=== PATIENT | male | born 1980 | race Caucasian/White ===

== ENCOUNTER 2022-08-30 13:44 | Emergency (ER) | payer MEDICAID, SELFPAY ==
[2022-08-30 13:45] VITALS: BP 126/65; PULSE 98; RESP 16; TEMP 37.1; O2SAT 96
[2022-08-30 13:53] VITALS: BMI 24.0
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
[2022-08-30] MEDS: 0.9% Normal Saline 1,000 ML 999 ML IV (14:17)
[2022-08-30] MEDS: Morphine 4 MG/ML Syringe IV ×2 (14:17→14:59)
[2022-08-30 14:30] LABS: Absolute Lymphocyte Count 2.91 X10^3/uL (0.83-4.51); Absolute Neutrophil Count 9.2 X10^3/uL (2.0-7.7); Basophil# 0.06 X10^3/uL; Basophil% 0.4 % (0-1); Eosinophil# 0.21 X10^3/uL; Eosinophils% 1.5 % (0-5); Hematocrit 45.2 % (40-54); Hemoglobin 15.3 g/dL (13.0-16.5); Lymphocyte # 2.91 X10^3/ul (0.83-4.51); Lymphocyte % 21.2 % (19-41); Mean Corp Hgb Conc 33.8 g/dL (32-36); Mean Corpuscular Hgb 29.3 pg (27.0-32.0); Mean Corpuscular Volume 86.6 fL (80-94); Mean Platelet Vol. 10.7 fl (6.2-12.0); Monocyte% 8.7 % (0-10); NRBC Flagged by Analyzer 0 % (0-5); Neutrophil # 9.19 X10^3/uL (2.7-7.7); Platelet Count 227 K/mm3 (150-450); RBC Distribution Width CV 13.3 % (11.6-14.6); Red Blood Count 5.22 M/mm3 (4.6-6.2); White Blood Count 13.7 K/mm3 (4.4-11.0)
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
[2022-08-30 14:43] LABS: Anion Gap 8 (5-15); BUN 15 mg/dL (7-18); BUN/Creat Ratio 17.1 RATIO (10-20); Calcium,Total 9.3 mg/dL (8.5-10.1); Chloride 105 mmol/L (98-107); Creatinine, Serum 0.88 mg/dL (0.70-1.30); EST Glomerular Filtration Rate 101 mL/min (>60); Est Glom Filt Rate - Afr Amer 122 mL/min (>60); Estimated Creatinine Clearance 116.47 ml/min; Glucose 97 mg/dL (74-106); Potassium 3.5 mmol/L (3.5-5.1); Sodium Level 137 mmol/L (136-145)
[2022-08-30 15:06] VITALS: PULSE 101; RESP 14; O2SAT 98
[2022-08-30] MEDS: HYDROmorphone 1 MG/ML Syringe IV (15:42)
[2022-08-30 15:50] VITALS: PULSE 92; RESP 16
== END 2022-08-30 16:20 | disposition home or self-care (01) ==
PROVIDERS: Emergency Provider Emergency Medicine; Visit Provider Emergency Medicine
DX: S20.20XA Contusion of thorax, unspecified, initial encounter (principal); S09.90XA Unspecified injury of head, initial encounter; F17.210 Nicotine dependence, cigarettes, uncomplicated; X58.XXXA Exposure to other specified factors, initial encounter
CPT/HCPCS: 70450; 71260; 72125; 73000; 74177; 80048; 85025; 93005; 96361; 96374; 96375; 96376; 99283; Q9967; A4216

== ENCOUNTER 2024-11-28 10:14 | Emergency (ER) | payer MEDICAID, SELFPAY ==
[2024-11-28 10:15] VITALS: BP 146/85; PULSE 96; RESP 18; TEMP 36.8; O2SAT 96; BMI 31.5
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
--- NOTE | 2024-11-28 10:26 | EKG12_ITS ---
Test Reason : SOB Blood Pressure : */* mmHG Vent. Rate : 86 BPM Atrial Rate : 86 BPM P-R Int : 168 ms QRS Dur : 96 ms QT Int : 342 ms P-R-T Axes : 59 66 50 degrees QTcB Int : 409 ms Normal sinus rhythm Normal ECG Confirmed by GALO RAIN, SCOTT ([id number]), general expeditor ERI ANNA ([id number]) on 12/02/2024 8:58:54 AM Referred By: Confirmed By: SCOTT ROSENTHAL MD
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
[2024-11-28] MEDS: Orphenadrine 60 MG/2 ML Ampul 30 MG IV (10:31)
[2024-11-28] MEDS: 0.9% Normal Saline (1000mL) 1,000 ML 999 ML IV (10:31)
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
[2024-11-28 10:47] LABS: Hematocrit 46.8 % (40-54); Hemoglobin 16.5 g/dL (13.0-16.5); Immature Granulocytes Count 0.090 X10^3/uL (0.0-0.0); Mean Corp Hgb Conc 35.3 g/dL (32-36); Mean Corpuscular Volume 87.3 fL (80-94); Mean Platelet Vol. 9.8 fl (6.2-12.0); NRBC Flagged by Analyzer 0 % (0-5); Platelet Count 175 K/mm3 (150-450); RBC Distribution Width CV 13.1 % (11.6-14.6); RBC Distribution Width SD 41.8 fl (35.1-43.9); Red Blood Count 5.36 M/mm3 (4.6-6.2); White Blood Count 12.9 K/mm3 (4.4-11.0)
[2024-11-28 10:56] LABS: Prothrombin Time (Protime)PT. 13.9 SECONDS (11.7-14.9)
[2024-11-28 10:57] LABS: Partial Thromboplast Time 26.7 Seconds (24.1-36.2)
[2024-11-28 11:17] VITALS: O2SAT 98
[2024-11-28 11:25] LABS: AST(SGOT) 49 U/L (<=37); Alanine Aminotransfer ALT/SGPT 32 U/L (<=46); Albumin, Serum 4.3 g/dL (3.5-5.0); Alkaline Phosphatase 104 U/L (40-129); Anion Gap 15 (5-15); BUN 11 mg/dL (4-19); BUN/Creat Ratio 13.7 RATIO (10-20); Bilirubin, Direct 0.32 mg/dL (0.00-0.30); Calcium,Total 9.4 mg/dL (7.6-11.0); Carbon Dioxide 20.1 mmol/L (21.0-32.0); Chloride 102 mmol/L (98-108); Estimated Creatinine Clearance 140.39 ml/min (50-250); Globulin 3.9 g/dL (2.2-4.2); Glucose 110 mg/dL (70-99); Potassium 4.1 mmol/L (3.3-5.1)
[2024-11-28 11:41] LABS: Mucous, Urine 0 SEEN /hpf (<or=2+); Red Blood Cells-Urine 0 SEEN /hpf (0-5); Squamous Epithelial Cells - UA 0 SEEN /hpf (0-5)
[2024-11-28 11:49] LABS: Glucose, Dipstick Normal (Normal); Leukocyte Esterase-Dipstick 25 /ul (Negative); Nitrite-Dipstick Negative (Negative); Occult Blood-Urine 10 /ul (Negative); Protein-Dipstick 30 mg/dl (Negative); Specific Gravity, Urine 1.010 (1.002-1.030); Urine Bilirubin Dipstick Negative (Negative)
[2024-11-28 11:57] LABS: Ketone-Dipstick 150 mg/dl (Negative)
[2024-11-28 12:01] LABS: Color, Urine Yellow (Yellow)
[2024-11-28 13:36] VITALS: BP 146/83; PULSE 96; RESP 18; TEMP 36.8; O2SAT 97
== END 2024-11-28 13:45 | disposition other institution (70) ==
PROVIDERS: Emergency Provider Emergency Medicine; Visit Provider Emergency Medicine
DX: S32.019A Unspecified fracture of first lumbar vertebra, initial encounter for closed fracture (principal); S32.029A Unspecified fracture of second lumbar vertebra, initial encounter for closed fracture; S32.039A Unspecified fracture of third lumbar vertebra, initial encounter for closed fracture; S22.089A Unspecified fracture of T11-T12 vertebra, initial encounter for closed fracture; S22.32XA Fracture of one rib, left side, initial encounter for closed fracture; V89.2XXA Person injured in unspecified motor-vehicle accident, traffic, initial encounter; M47.816 Spondylosis without myelopathy or radiculopathy, lumbar region; F17.210 Nicotine dependence, cigarettes, uncomplicated; Z87.828 Personal history of other (healed) physical injury and trauma; Z87.898 Personal history of other specified conditions
CPT/HCPCS: 70450; 71260; 72125; 74177; 80048; 80076; 81001; 85025; 85610; 85730; 93005; 96361; 96374; 96375; 96376; 99284; Q9967; A4216; J2405

== ENCOUNTER 2024-11-30 11:20 | Emergency (ER) | payer MEDICAID, SELFPAY ==
[2024-11-30] VITALS (7 sets, daily range): BP systolic 102–141; BP diastolic 64–89; PULSE 55–78; RESP 16–18; TEMP 36.7; O2SAT 95–98; BMI 31.4
--- OUTSIDE RECORDS SUMMARY | 2024-11-30 11:54 | XMS RPT_ITS | CCD ---
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 #### [facility],[address] [place] [address] 70793 ALT [Catalytic activity/Vol] 34 U/L Normal 16 - 63 [facility] Comment on above: Performed By: #### 2 05636 #### [facility],[address] [place] [address] 49170 Anion gap [Moles/Vol] 13 mmol/L Normal 10 - 20 [facility] Comment on above: Performed By: #### 2 81702 #### [facility],[address] [place] [address] 09216 AST [Catalytic activity/Vol] 16 U/L Normal 15 - 37 [facility] Comment on above: Performed By: #### 2 48207 #### [facility],[address] [place] [address] 05842 B/C RATIO 12 ratio Normal 0 - 30 [facility] Comment on above: Performed By: #### 2 92759 #### [facility],[address] [place] [address] 14763 Bilirubin [Mass/Vol] 0.5 mg/dL Normal 0.2 - 1.0 [facility] Comment on above: Performed By: #### 2 30094 #### [facility],[address] [place] [address] 19790 Calcium [Mass/Vol] 8.3 mg/dL Low 8.5 - 10.1 [facility] Comment on above: Performed By: #### 2 15695 #### [facility],[address] [place] [address] 54643 Chloride [Moles/Vol] 103 mmol/L Normal 98 - 107 [facility] Comment on above: Performed By: #### 2 30695 #### [facility],[address] [place] [address] 27161 CMP with eGFR Normal [facility] Comment on above: Result Comment: COMP REHENSIVE METABOLIC PANEL Performed By: #### 2 15692 #### [facility],[address] [place] [address] 10672 CO2 [Moles/Vol] 23.8 mmol/L Normal 21.0 - 32.0 [facility] Comment on above: Performed By: #### 2 01484 #### [facility],[address] [place] [address] 47141 Creatinine [Mass/Vol] 0.74 mg/dL Normal 0.70 - 1.30 [facility] Comment on above: Performed By: #### 2 40440 #### [facility],[address] [place] [address] 21989 GFR/1.73 sq M.predicted among non-blacks MDRD (S/P/Bld) [Vol rate/Area] mL/min/{1.73_m2} Normal 60 - 999 [facility] Comment on above: Performed By: #### 2 97190 #### [facility],[address] [place] [address] 37068 Result Comment: ACCO RDING TO THE NATIONAL KIDNEY DISEASE EDUCATION PROGRAM(NKDE), A NORMAL eGFR IS A VALUE GREATER THAN OR EQUAL TO 60 ML/MIN/1.73 SQ METERS. CHRONIC KIDNEY DISEASE: <60mL/MIN/1.73 SQ METERS KIDNEY FAILURE: <15mL/MIN/1.73 SQ METERS THIS TEST SHOULD ONLY BE USED FOR PATIENTS 18 YEARS OF AGE AND OLDER. Globulin (S) [Mass/Vol] 4.0 g/dL High 1.5 - 3.8 [facility] Comment on above: Performed By: #### 2 16544 #### [address] [address] Glucose [Mass/Vol] 118 mg/dL High 74 - 106 [facility] Comment on above: Performed By: #### 2 73086 #### [address] [address] Potassium [Moles/Vol] 3.6 mmol/L Normal 3.5 - 5.1 [facility] Comment on above: Performed By: #### 2 34944 #### [facility],[address] [place] [address] 70340 Protein [Mass/Vol] 7.2 g/dL Normal 6.4 - 8.2 [facility] Comment on above: Performed By: #### 2 32369 #### [facility],[address] [place] [address] 85871 Sodium [Moles/Vol] 136 mmol/L Normal 136 - 145 [facility] Comment on above: Performed By: #### 2 65136 #### [facility],[address] [place] [address] 24007 Urea nitrogen [Mass/Vol] 9 mg/dL Normal 7 - 18 [facility] Comment on above: Performed By: #### 2 65280 #### [address] [address] ABDOMEN/PELVIS W/WOon CT ABDOMEN/PELVIS W/WO [place] [id number] [place] [address] Patient: CIARA SUH Phone#: : 1980 Age: 44 Gender: M Pt. Type: ER Account: [id number] Location: [facility] Ordering: DAINA BOWEN Exam Date: 11/09/2024/11:56 Family Phys: Charge Code: [id number] Physician: Harney Order #: [id number] Dose#: 40.4 mGy PROCEDURE: CT ABDOMEN/PELVIS WITH AND WITHOUT CONTRAST COMPARISON: None. INDICATIONS: Abdominal pain. TECHNIQUE: After obtaining the patient's consent, CT images of the abdomen were created without and with non-ionic intravenous contrast material, and CT images of the pelvis were obtained with non-ionic intravenous contrast material. All CT scans at this facility use dose modulation, iterative reconstruction, and/or weight based dosing when appropriate to reduce radiation dose to as low as reasonably achievable. IV CONTRAST: Visipaque 320,100ml TOTAL DOSE: 40.4 CTDIvol(mGy) FINDINGS: LIVER: Mild fatty changes of the liver are present.. No enlargement, atrophy, abnormal density, or significant focal lesion. BILIARY: Normal. No visible dilatation or calcification. PANCREAS: Normal. No lesion, fluid collection, ductal dilatation, or atrophy. SPLEEN: Normal. No enlargement or focal lesion. KIDNEYS: Normal. No mass, obstruction, or calcification. ADRENALS: Normal. No mass or enlargement. AORTA/VASCULAR: Normal. No aneurysm or dissection. RETROPERITONEUM: Normal. No mass or adenopathy. BOWEL/MESENTERY: There is no evidence of obstructive position of contrast. No visible mass, obstruction, or bowel wall thickening. ABDOMINAL WALL: Normal. No mass or hernia. URINARY BLADDER: Normal. No visible focal wall thickening, lesion, or calculus. PELVIC NODES: Normal. No adenopathy. PELVIC ORGANS: Normal. No visible mass. Pelvic organs appropriate for patient age. BONES: Degenerative changes of the spine are present. Pars defects are present at the L5 level bilaterally. LUNG BASES: Normal. No visible pulmonary or pleural disease. Continued Report - Page 2 of 2 Patient: CIARA SUH Phone#: : 1980 Age: 44 Gender: M Pt. Type: ER Account: [id number] Location: 052 Ordering: DAINA JESSI Exam Date: 11/09/2024/11:56 Family Phys: Charge Code: [id number] Physician: Harney Order #: [id number] Dose#: 40.4 mGy OTHER: Negative. CONCLUSION: 1. There is no evidence of acute abdominal or pelvic abnormality. 2. Bilateral L5 pars defects. Dictated by: Loni Bearden MD on 11/09/2024 at 12:33 Approved by: Loni Bearden MD on 11/09/2024 at 12:39 Normal [facility] ED MED ADMINISTRATION DETAIL on 11-09-2024 ED MED ADMINISTRATION DETAIL Billet Checker - CIARA SUH : 1980, , [place] [address] [id number] 11/09/2024 Patient: CIARA SUH Sex: Male : 1980 Age: 44y MEASUREMENTS: Wt: 99.8 kg, Ht/Zafar: 71.0 in, BMI: 30.68 ALLERGIES: No known drug allergies Medication Ordered Medication Administration Date/Time IV NS 0.9 % 1000 11:11 11/09 IV NS 0.9 % 1000 mL started in bag#1 1000 mL at Started mL at 250 mL/hr 250 mL/hr via Site# 1. Allergies verified and confirmed 5 rights. IV 11:11 11/09/2024 (NOW x1) patency established. IV site checked: no pain, redness, or swelling. Rafia Unger R.N. IV flushed thoroughly pre-medication administration. Information Stopped reviewed with patient. Verbalizes understanding. - 11:13 Rafia 13:18 11/09/2024 Jr Unger R.N. Scanned 13:18 11/09 Medication Discontinued: bag #1 infused. Total amount infused: 1000 mL. IV patency established. IV site checked: no pain, redness, or swelling. IV flushed thoroughly post-medication administration. - 13:23 Rafia Unger R.N. 1 of 1 Normal [facility] ED NURSES CLINICAL NOTEon ED NURSES CLINICAL NOTE Nurse Narrative - CIARA SUH, : 1980, , Nurse Clinical Narrative [address] [address] [id number] 11/09/2024 10:49:00 Patient: CIARA SUH Sex: Male : 1980 Age: 44y Disposition: Discharge to Home Disposition Decision Time: 13:11/09/2024 Departure Time: 13:11/09/2024 TRIAGE Arrived by private vehicle. Historian: (patient). Accompanied by family. Triage time: 10:50 11/09/2024. Acuity: LEVEL 3. Chief Complaint: ABDOMINAL PAIN and DIARRHEA. Alert. No acute distress. This started today. The patient has had diarrhea and abdominal pain. SEPSIS SCREEN: NEGATIVE. SIRS criteria negative. SEVERE SEPSIS SCREEN NEGATIVE. No signs of organ dysfunction present. -- 10:54 11/09/24 EDT Faby Wellington R.N. 10:53 11/09/24. BP: 149/88 MAP: 108. HR: 79. RR: 16. O2 saturation: 97% Temperature: 97.6 F. Pain level now 6/10. -- 10:53 11/09/24 EDT Faby Wellington R.N. Measurements: 10:53 11/09/24 Wt: 99.8 kg, Ht/Zafar: 71.0 in, BMI: 30.68 -- 10:53 11/09/24 EDT Faby Wellington R.N. Medications: no known home medications -- 10:52 11/09/24 EDT Faby Wellington R.N. 1 of 4 Nurse Narrative - CIARA SUH, : 1980, , 10:50 11/09/24. Preferred Pharmacy: ([facility]). -- 10:54 11/09/24 RITU Wellington R.N. Allergies: no known drug allergies -- 10:52 11/09/24 BOBT Faby Wellington R.N. Problems: Colon Cancer -- 10:51 11/09/24 BOBT Faby Wellington R.N. Surgeries: facial trauma surgery -- 10:51 11/09/24 BOBT Faby Wellington R.N. Appendectomy -- 10:51 11/09/24 RITU Wellington R.N. Hernia Repair -- 10:51 11/09/24 BOBT Faby Wellington R.N. Colonoscopy -- 10:51 11/09/24 RITU Wellington R.N. History 10:50 11/09/24. PAST MEDICAL HX: Immunizations: up-to-date. SOCIAL HX: Smoker- current status unknown. Alcohol use. Drug use: marijuana. The patient has not traveled outside the [place] Infectious disease exposure: No infectious disease exposure. ABUSE ASSESSMENT: Abuse denied. No suspicion of abuse. SELF HARM ASSESSMENT: Self harm assessment was performed. The patient answered no to the question(s) Have you recently felt down, depressed, or hopeless? and Do you have thoughts of harming or killing yourself?. -- 10:54 11/09/24 RITU Wellington R.N. 10:55 11/09/24. FALL RISK ASSESSMENT: Fall risk assessment completed. No risk factors identified. -- 10:55 11/09/24 RITU Wellington R.N. Interventions 2 of 4 Nurse Narrative - CIARA SUH, : 1980, , 10:50 11/09/24. Identification band on patient. To treatment room. Advanced care plan. Patient does not have advanced directive. -- 10:54 11/09/24 RITU Wellington R.N. PHYSICAL ASSESSMENT 11:23 11/09/24. GENERAL / NEURO / PSYCH: Alert. Oriented X 4. Appears in no acute distress. ( Pt arrives ambulatory to ER#6 c/o blood in stool that started last night. Pt has a hx of colon cancer 10 years ago and reports last colonoscopy was 3 years ago. Pt reports has chronic diarrhea since colon cancer. Pt reports started in with blood last evening only when going to the bathroom. Pt denies having to wear a pad or blood on underwear.). HEENT: Mucous membranes are pink. RESPIRATORY: Respirations not labored. GI / : Abdominal distention. Abdomen soft. Abdominal tenderness in the left lower quadrant and lower abdomen. Bowel sounds within normal limits. Blood present in the stool. SKIN: Skin is warm and dry. -- 11:33 11/09/24 RITU Unger R.N. NURSING PROGRESS NOTES 11:07 11/09/24. Site #1 started in the right antecubital space with an 18g needle with aseptic technique and good blood return; 1 attempt. Blood drawn: rainbow set tube(s). Saline lock flushed with 5 mL saline. -- 11:10 11/09/24 RITU Unger R.N. 11:11 11/09/24. IV NS 0.9 % 1000 mL started in bag#1 1000 mL at 250 mL/hr via Site# 1. Allergies verified and confirmed 5 rights. IV patency established. IV site checked: no pain, redness, or swelling. IV flushed thoroughly pre-medication administration. Information reviewed with patient. Verbalizes understanding. -- 11:13 11/09/24 RITU Unger R.N. 11:20 11/09/24. Remelt Operator provided for the general and rectal exam by the physician. ( done with MD and EMT-P Cy). -- 11:26 11/09/24 RITU Unger R.N. 11:50 11/09/24. Patient transported to radiology and CT by stretcher with oven technician. -- 11:54 11/09/24 RITU Unger R.N. 12:27 11/09/24. Urine collected. -- 12:52 11/09/24 RITU Unger R.N. 12:58 11/09/24. BP: 112/71 while lying MAP: 85. HR: 72. 13:00 11/09/24. BP: 120/76 while sitting MAP: 91. HR: 85. Patient reports feeling dizzy. 13:02 11/09/24. BP: 112/74 while standing MAP: 87. HR: 70. -- 13:05 11/09/24 EDT Rafia Unger R.N. (more content not included)... Normal [facility] ED ORDER SHEET (CPOE ONLY)on 11-09-2024 ED ORDER SHEET (CPOE ONLY) Order Sheet - CIARA SUH, : 1980, , Order Sheet [address] [address] [id number] 11/09/2024 Patient: CIARA SUH Sex: Male : 1980 Age: 44y MEASUREMENTS: Wt: 99.8 kg, Ht/Zafar: 71.0 in, BMI: 30.68 ALLERGIES: No known drug allergies MEDICATION/IV/DRIP/F LUID ORDERS Order Description Priority Entered Acknowledged Completed IV NS 0.9 %1000 mL at 250 10:52 11/09/2024 11:10 11:13 mL/hr (NOW x1) Daina Bowen, 11/09/2024 11/09/2024 Rafia Jiménez R.N. R.N. LAB ORDERS Order Description Priority Entered Acknowledged Collected Completed CBC w Diff Stat Stat 10:52 11/09/2024 11:09 11/09/2024 11:10 11/09/2024 Rafia Costello Shauna Ewing, D.O. R.NAlbetr R.N. CMP Stat Stat 10:52 11/09/2024 11:09 11/09/2024 11:10 11/09/2024 Rafia Costello Shauna Ewing, D.O. R.N. R.N. Urinalysis Stat Stat 10:52 11/09/2024 11:09 11/09/2024 13:23 11/09/2024 Rafia Costello Shauna Ewing, 1 of 2 Order Sheet - CIARA SUH, : 1980, , Dana RikcsNAlbert R.N. Occult Blood, Stool Stat 11:22 11/09/2024 11:25 11/09/2024 11:25 11/09/2024 (Non-Cancer Screening) Rafia Costello Shauna Ewing, Stat Dana RicksNAlbert R.NAlbert DIAGNOSTIC STUDY ORDERS Order Description Priority Entered Acknowledged Completed CT ABD/PEL wCont 10:52 11/09/2024 11:09 11:10 Daina Bowen, 11/09/2024 11/09/2024 Rafia Jiménez R.NAlbert R.N. Reason for Study: Abdominal Pain STAFF ORDERS Order Description Priority Entered Acknowledged Collected Completed IV Saline Lock 10:52 11/09/2024 11:09 11/09/2024 11:10 11/09/2024 Rafia Costello Shauna Ewing, D.O. R.N. R.N. [Electronically signed by Daina Bowen D.O. (11/09/2024 21:53 EDT)] 2 of 2 [facility] ED PHYSICIAN CLINICAL REPORT on 11-09-2024 ED PHYSICIAN CLINICAL REPORT Narrative - CIARA SUH, : 1980, , Physician Clinical Narrative [address] [address] [id number] 11/09/2024 10:49:00 Patient: CIARA SUH Sex: Male : 1980 Age: 44y Disposition: Discharge to Home Disposition Decision Time: 13:22 11/09/2024 Departure Time: 13:22 11/09/2024 Measurements Wt: 99.8 kg, Ht/Zafar: 71.0 in, BMI: 30.68 Initial Vital Sign Measured Time BP MAP HR RR O2Sat ETCO2 Temp Pain GCS RTS 10:53 11/09/2024 149/88 108 79 16 97% 97.6 F 6 Time Seen: 10:47 11/09/2024. Arrived- By private vehicle. Historian- patient. Independent historian- family. HISTORY OF PRESENT ILLNESS Chief Complaint: ABDOMINAL PAIN. (patient came in complaining of rectal bleeding he also had some pain in his abdomen mainly in left lower quadrant says right now it is a 6/10 they most tense was 8/10 started last night around 8:00 a.m. it is cramping stabbing pressure he said he has bright red blood it is worse with his posture has a bowel movement. He has had a history of colon cancer. Proximally 10 years ago. He said he had colonoscopy 3 years ago. He has also had a appendectomy. He does smoke he does use marijuana he occasionally drinks alcohol. He is here with significant other). Is still present. REVIEW OF SYSTEMS NEUROLOGICAL: No headache. : No difficulty with urination or pain with urination. GI: No constipation or black stools. CVS: No chest pain. CONSTITUTIONAL: No fever or chills. 1 of 11 CIARA Gordon, : 1980, , PAST HISTORY See nurses notes. Colon Cancer Surgeries: Appendectomy Colonoscopy facial trauma surgery Hernia Repair Medications: no known home medications Allergies: no known drug allergies SOCIAL HISTORY Occasional alcohol use. Drug use: marijuana. ADDITIONAL NOTES The nursing notes have been reviewed. PHYSICAL EXAM Appearance: Alert. Oriented X3. No acute distress. Eyes: Pupils equal, round and reactive to light. Eyes normal inspection. ENT: Ears normal. Nose normal. Neck: Normal inspection. Neck supple. CVS: Normal heart rate and rhythm. Heart sounds normal. Respiratory: No respiratory distress. Breath sounds normal. Abdomen: Soft and nontender. Bowel sounds normal. No mass. Back: Normal inspection. Rectal: Rectal exam normal. Skin: Skin warm and dry. Normal skin color. Normal skin turgor. 2 of 11 CIARA Gordon, : 1980, , Extremities: Extremities exhibit normal ROM. No lower extremity edema. Neuro: Oriented X 3. No motor deficit. LABS, X-RAYS, AND EKG Laboratory Tests: CBC + DIFF Final SULEIMAN: 11/09/2024 11:08:00 EDT MsgRcvd: 11/09/2024 11:21 EDT Lab Test Result Reference Status Received 11/09/2024 11:21 CBC + DIFF Final EDT CBC-COMPLETE BLOOD COUNT 11/09/2024 11:21 WBC 9.6 x 10/UL 4.5 - 10.8 Final EDT 11/09/2024 11:21 RBC 5.16 x 10/UL 4.50 - 6.00 Final EDT 11/09/2024 11:21 HEMOGLOBIN 15.6 g/dl 13.0 - 17.5 Final EDT 11/09/2024 11:21 HEMATOCRIT 45.8 % 40.0 - 52.0 Final EDT 11/09/2024 11:21 MCV 89 fl 81 - 98 Final EDT 11/09/2024 11:21 MCH 30 pg 27 - 33 Final EDT 11/09/2024 11:21 MCHC 34 X10 3 32 - 36 Final EDT 11/09/2024 11:21 RDW/CV 13.0 % 12.0 - 15.6 Final EDT 3 Jose Antonio - CIARA SUH, : 1980, , 11/09/2024 11:21 PLATELET 189 x10/UL 150 - 450 Final EDT 11/09/2024 11:21 MPV 7.7 fl 6.4 - 10.5 Final EDT AUTOMATED DIFFERENTIAL 11/09/2024 11:21 NEUT % 71.4 % 46.0 - 76.0 Final EDT 18.9 % 11/09/2024 11:21 LYMPH % 20.0 - 45.0 Final Below low normal EDT 11/09/2024 11:21 MONOS % 6.8 % 0.0 - 10.0 Final EDT 11/09/2024 11:21 EO % 2.8 % 0.0 - 7.0 Final EDT 11/09/2024 11:21 BASO % 0.1 % 0.0 - 2.0 Final EDT 11/09/2024 11:21 Lymph # 1.83 x10/UL 0.80 - 2.80 Final EDT 11/09/2024 11:21 Neut # 6.89 x10/UL 1.50 - 7.10 Final EDT 11/09/2024 11:21 [place] # 0.65 x10/UL 0.20 - 1.00 Final EDT 11/09/2024 11:21 EO # 0.27 x10/UL 0.00 - 0.50 Final EDT 11/09/2024 11:21 Baso # 0.01 x10/UL 0.00 - 0.10 Final EDT 11/09/2024 11:21 MANUAL DIFF N/A New Order EDT 4 of 11 CIARA Gordon, : 1980, , 11/09/2024 11:21 MORPHOLOGY N/A New Order EDT CMP with eGFR Final SULEIMAN: 11/09/2024 11:08:00 EDT MsgRcvd: 11/09/2024 12:11 EDT Lab Test Result Reference Status Received 11/09/2024 12:11 CMP with eGFR Final EDT COMPREHENSIVE METABOLIC PANEL 11/09/2024 12:11 SODIUM 136 mmol/l 136 - 145 Final EDT 11/09/2024 12:11 POTASSIUM 3.6 mmol/L 3.5 - 5.1 Final EDT 11/09/2024 12:11 CHLORIDE 1 (more content not included)... Normal [facility] ED SUPER BILLon 11-09-2024 ED SUPER BILL CIARA Oliveira, : 1980, , [place] [address] [phone] 11/09/2024 Patient: CIARA SUH Sex: Male : 1980 Age: 44y Facility Professional Category Item Description Code Code Quantity Fee Total Drugs Normal Saline 635518 1 $0.00 $0.00 1000cc (747451) Nurse/E/M EMERGENCY 078172 1 $0.00 $0.00 DEPT VISIT HIGH SEVERITYFUNCJ (61534-61) Nurse/IV/IM/Infusion s Hydration 011209 1 $0.00 $0.00 additional hour (66148) Nurse/IV/IM/Infusion s Hydration initial 461752 1 $0.00 $0.00 (67442) Grand $0.00 Total Providers Daina Bowen D.O. Chief Complaint ABDOMINAL PAIN. 1 of 2 CIARA Oliveira, : 1980, , Principal Diagnosis Rectal bleed consisting of bright red blood. ICD-10 Codes K62.5: Hemorrhage of anus and rectum 2 of 2 Normal [facility] ED VISIT SUMMARYon ED VISIT SUMMARY Visit Overview - CIARA SUH, : 1980, , Visit [id number] [place] [address] [phone] 11/09/2024 Patient: CIARA SUH Sex: Male : 1980 Age: 44y 11/09/2024 09:53 PM EDT ED Arrival:10:49 11/09/2024 EDT Status: Recent Travel:no Language:eng Adv Directive:No Isolation Status: Ethnicity:N Fall Risk:no risk Infectious Disease Exposure:no Measurements:5'11 / 180.3 Self-Harm Status:no risk Sepsis Screen:negative cm 220.0 lb / 99.8 kg Chief Complaint:ABDOMINAL PAIN and DIARRHEA ALLERGIES No Known Drug Allergies HOME MEDICATIONS None PAST MEDICAL HISTORY / PROBLEMS Colon Cancer Immunizations: up-to-date See nurses notes 1 of 3 Visit Overview - CIARA SUH, : 1980, , PAST SURGICAL HISTORY Appendectomy Colonoscopy facial trauma surgery Hernia Repair SOCIAL HISTORY Smoking status: Yes Alcohol use: Yes Drug use: Yes ED COURSE MEDICATIONS GIVEN IN EMERGENCY DEPARTMENT 11:11 11/09/24 IV NS 0.9 % 1000 mL 250 mL/hr IV SITE INFORMATION INTAKE OUTPUT REASSESMENT (most recent) 11:23 11/09/24. GENERAL / NEURO / PSYCH: Alert. Oriented X 4. Appears in no acute distress. ( Pt arrives ambulatory to ER#6 c/o blood in stool that started last night. Pt has a hx of colon cancer 10 years ago and reports last colonoscopy was 3 years ago. Pt reports has chronic diarrhea since colon cancer. Pt reports started in with blood last evening only when going to the bathroom. Pt denies having to wear a pad or blood on underwear.). HEENT: Mucous membranes are pink. RESPIRATORY: Respirations not labored. GI / : Abdominal distention. Abdomen soft. Abdominal tenderness in the left lower quadrant and lower abdomen. Bowel sounds within normal limits. Blood present in the stool. SKIN: Skin is warm and dry. VITAL SIGNS First Vitals Last Vitals Temp 10:53 11/09/24 97.6 F Temp 13:16 11/09/24 BP 10:53 11/09/24 149/88 BP 13:16 11/09/24 HR 10:53 11/09/24 79 HR 13:16 11/09/24 76 2 of 3 Visit Overview - CIARA SUH, : 1980, , First Vitals Last Vitals RR 10:53 11/09/24 16 RR 13:16 11/09/24 O2 Sat 10:53 11/09/24 97% O2 Sat 13:16 11/09/24 97% Pain 10:53 11/09/24 6 Pain 13:16 11/09/24 ETCO2 10:53 11/09/24 ETCO2 13:16 11/09/24 GCS 10:53 11/09/24 GCS 13:16 11/09/24 RTS 10:53 11/09/24 RTS 13:16 11/09/24 PROCEDURES NURSING INTERVENTIONS LABS / STUDIES LABS / STUDIES ORDERED CBC w Diff CMP CT ABD/PEL wCont Occult Blood, Stool (Non-Cancer Screening) Urinalysis CLINICAL IMPRESSION RECTAL BLEED CONSISTING OF BRIGHT RED BLOOD 3 of 3 Normal [facility] ED VITALS FLOW SHEETon 11-09 ED VITALS FLOW SHEET Vitals - CIARA SUH, : 1980, , Vital Sign Flow Sheet [address] [place] [address] [phone] 11/09/2024 Patient: CIARA SUH Sex: Male : 1980 Age: 44y Measurements Wt: 99.8 kg, Ht/Zafar: 71.0 in, BMI: 30.68 Measured Time BP MAP HR RR O2Sat ETCO2 Temp Pain GCS RTS 13:16 11/09/2024 76 97% 13:14 11/09/2024 105/72 83 70 13:11 11/09/2024 71 96% 13:06 11/09/2024 72 96% 13:02 11/09/2024 112/74 82 68 13:01 11/09/2024 66 95% 13:01 11/09/2024 120/76 86 63 12:59 11/09/2024 112/71 79 70 12:58 11/09/2024 112/71 85 72 (Orthostatic lying) 13:00 11/09/2024 120/76 91 85 (Orthostatic sitting) 13:02 11/09/2024 112/74 87 70 (Orthostatic standing) 12:56 11/09/2024 70 96% 1 of 2 CIARA Bell, : 1980, , Measured Time BP MAP HR RR O2Sat ETCO2 Temp Pain GCS RTS 12:51 11/09/2024 71 94% 12:46 11/09/2024 67 97% 12:45 11/09/2024 92/69 71 71 12:41 11/09/2024 73 96% 12:36 11/09/2024 75 96% 12:31 11/09/2024 76 96% 12:26 11/09/2024 69 97% 12:21 11/09/2024 77 96% 12:16 11/09/2024 80 97% 12:14 11/09/2024 118/76 81 76 12:07 11/09/2024 75 92% 12:02 11/09/2024 68 93% 11:57 11/09/2024 71 94% 11:52 11/09/2024 75 91% 11:46 11/09/2024 81 93% 11:44 11/09/2024 123/73 81 78 11:41 11/09/2024 81 92% 11:36 11/09/2024 94 93% 11:31 11/09/2024 78 96% 11:26 11/09/2024 82 93% 11:21 11/09/2024 82 94% 11:16 11/09/2024 85 95% 11:14 11/09/2024 113/76 88 70 10:53 11/09/2024 149/88 108 79 16 97% 97.6 F 6 2 of 2 Normal [facility] OCCULT BLOOD STOOL(NON-CANCE R SCREENING)on 11-09-2024 OCCULT BLOOD STOOL Negative Normal [facility] Comment on above: Performed By: #### 2 74720 #### [facility],[address] [place] [address] 52791 URINALYSISon 11-09-2024 Bilirubin Ql (U) Negative Normal NORMAL: NEGATIVE [facility] Comment on above: Performed By: #### 2 78215 #### [facility],[address] [place] [address] 08512 Clarity (U) clear Normal NORMAL: CLEAR [facility] Comment on above: Performed By: #### 2 76827 #### [facility],[address] [place] [address] 61100 Color (U) yellow Normal NORMAL: YELLOW [facility] Comment on above: Performed By: #### 2 50589 #### [facility],[address] [place] [address] 04406 Glucose Ql (U) NORM Normal NORMAL: NORMAL [facility] Comment on above: Performed By: #### 2 68761 #### [facility],[address] [place] [address] 67763 Hemoglobin Ql (U) Negative Normal NORMAL: NEGATIVE [facility] Comment on above: Performed By: #### 2 26279 #### [facility],[address] [place] [address] 13956 Ketone Negative Normal NORMAL: NEGATIVE [facility] Comment on above: Performed By: #### 2 31243 #### [facility],[address] [place] [address] 66975 Leukocytes Negative Normal NORMAL: NEGATIVE [facility] Comment on above: Performed By: #### 2 49399 #### [facility],[address] [place] [address] 87589 Nitrite Ql (U) Negative Normal NORMAL: NEGATIVE [facility] Comment on above: Performed By: #### 2 67238 #### [facility],[address] [place] [address] 07846 pH (U) 7 [pH] Normal NORMAL: 5.0-8.0 [facility] Comment on above: Performed By: #### 2 39932 #### [facility],[address] [place] [address] Protein Ql (U) 30 Abnormal NORMAL: NEGATIVE [facility] Comment on above: Performed By: #### 2 61145 #### [facility],[address] [place] [address] Sp [place] 1.005 Low NORMAL: 1.010-1.030 [facility] Comment on above: Performed By: #### 2 19541 #### [facility],[address] [place] [address] Specimen Type R Normal [facility] Comment on above: Performed By: #### 2 58625 #### [facility],[address] [place] [address] Urinalysis dipstick W Reflex Microscopic panel (U) NOT INDICATED Normal [facility] Comment on above: Performed By: #### 2 81211 #### [facility],[address] [place], [place] [id number] Urobilinog NORM Normal NORMAL: NORMAL [facility] Comment on above: Performed By: #### 2 19612 #### [facility],[address] [place], [place] [id number] C-REACTIVE PROTEINon 025 CRP 1.29 mg/dl High 0.00 - 0.90 [facility] Comment on above: Performed By: #### 2 81190 #### [facility],[address] [place], [place] [id number] CBC + DIFFon 10-21-2024 Baso # 0.02 x10EE3/UL Normal 0.00 - 0.10 [facility] Comment on above: Performed By: #### 2 20798 #### [facility],[address] [place], [place] [id number] Basophils/100 WBC (Bld) 0.2 % Normal 0.0 - 2.0 [facility] Comment on above: Performed By: #### 2 38764 #### [facility],[address] [place] [address] CBC + DIFF Normal [facility] Comment on above: Result Comment: CBC- COMPLETE BLOOD COUNT Performed By: #### 2 11791 #### [facility],[address] [place] [address] EO # 0.30 x10EE3/UL Normal 0.00 - 0.50 [facility] Comment on above: Performed By: #### 2 46793 #### [facility],[address] [place] [address] Eosinophils/100 WBC (Bld) 2.9 % Normal 0.0 - 7.0 [facility] Comment on above: Performed By: #### 2 03270 #### [facility],[address] [place] [address] Erythrocyte distribution width (RBC) [Ratio] 13.7 % Normal 12.0 - 15.6 [facility] Comment on above: Performed By: #### 2 32467 #### [facility],[address] [place] [address] Hematocrit (Bld) [Volume fraction] 45.7 % Normal 40.0 - 52.0 [facility] Comment on above: Performed By: #### 2 44787 #### [facility],[address] [place] [address] Hemoglobin (Bld) [Mass/Vol] 16.0 g/dL Normal 13.0 - 17.5 [facility] Comment on above: Performed By: #### 2 69000 #### [facility],[address] [place] [address] Lymph # 1.88 x10EE3/UL Normal 0.80 - 2.80 [facility] Comment on above: Performed By: #### 2 45915 #### [facility],[address] [place] [address] Lymphocytes/100 WBC (Bld) 18.0 % Low 20.0 - 45.0 [facility] Comment on above: Performed By: #### 2 08287 #### [facility],[address] [place] [address] MANUAL DIFF N/A Normal [facility] Comment on above: Performed By: #### 2 25834 #### [facility],[address] [place] [address] MCH (RBC) [Entitic mass] 32 pg Normal 27 - 33 [facility] Comment on above: Performed By: #### 2 64422 #### [facility],[address] [place] [address] MCHC 35 X10 3 Normal 32 - 36 [facility] Comment on above: Performed By: #### 2 13423 #### [place] [address] MCV (RBC) [Entitic vol] 90 fL Normal 81 - 98 [facility] Comment on above: Performed By: #### 2 92045 #### [facility],[address] [place] [address] [place] # 0.73 x10EE3/UL Normal 0.20 - 1.00 [facility] Comment on above: Performed By: #### 2 86719 #### [facility],[address] [place] [address] MONOS % 7.0 % Normal 0.0 - 10.0 [facility] Comment on above: Performed By: #### 2 37204 #### [facility],[address] [place] [address] Morphology Oscar (Bld) [Interp] N/A Normal [facility] Comment on above: Performed By: #### 2 94101 #### [facility],[address] [place] [address] 65171 Neut # 7.50 x10EE3/UL High 1.50 - 7.10 [facility] Comment on above: Performed By: #### 2 97799 #### [facility],[address] [place] [address] Neutrophils/100 WBC (Bld) 71.9 % Normal 46.0 - 76.0 [facility] Comment on above: Performed By: #### 2 72750 #### [facility],[address] [place] [address] PLATELET 175 x10EE3/UL Normal 150 - 450 [facility] Comment on above: Performed By: #### 2 05452 #### [facility],[address] [place] [address] Platelet mean volume (Bld) [Entitic vol] 8.1 fL Normal 6.4 - 10.5 [facility] Comment on above: Result Comment: AUTO MATED DIFFERENTIAL Performed By: #### 2 70210 #### [facility],[address] [place] [address] 94528 RBC 5.05 x 10EE6/UL Normal 4.50 - 6.00 [facility] Comment on above: Performed By: #### 2 00812 #### [facility],[address] [place] [address] 13216 WBC 10.4 x 10EE3/UL Normal 4.5 - 10.8 [facility] Comment on above: Performed By: #### 2 33190 #### [facility],[address] [place] [address] CMP with eGFRon 10-21-2024 AGE 43 years Normal [facility] Comment on above: Performed By: #### 2 41294 ####[facility],[address] [place] [address] 16486 Albumin [Mass/Vol] 3.2 g/dL Low 3.4 - 5.0 [facility] Comment on above: Performed By: #### 2 08927 ####[facility],[address] [place] [address] 32643 Albumin/Globulin [Mass ratio] 0.7 {ratio} Low 0.9 - 1.6 [facility] Comment on above: Performed By: #### 2 38552 ####[facility],[address] [place] [address] 30362 ALK PHOS 101 U/L Normal 46 - 116 [facility] Comment on above: Performed By: #### 2 50849 ####[facility],[address] [place] [address] 49921 ALT [Catalytic activity/Vol] 34 U/L Normal 16 - 63 [facility] Comment on above: Performed By: #### 2 53853 ####[facility],[address] [place] [address] 14940 Anion gap [Moles/Vol] 10 mmol/L Normal 10 - 20 [facility] Comment on above: Performed By: #### 2 33361 ####[facility],[address] [place] [address] 16139 AST [Catalytic activity/Vol] 14 U/L Low 15 - 37 [facility] Comment on above: Performed By: #### 2 21584 ####[facility],[address] [place] [address] 83711 B/C RATIO 12 ratio Normal 0 - 30 [facility] Comment on above: Performed By: #### 2 93340 ####[facility],[address] [place] [address] 65313 Bilirubin [Mass/Vol] 0.5 mg/dL Normal 0.2 - 1.0 [facility] Comment on above: Performed By: #### 2 88758 ####[facility],[address] [place] [address] 31254 Calcium [Mass/Vol] 8.5 mg/dL Normal 8.5 - 10.1 [facility] Comment on above: Performed By: #### 2 53467 ####[facility],[address] [place] [address] 96484 Chloride [Moles/Vol] 102 mmol/L Normal 98 - 107 [facility] Comment on above: Performed By: #### 2 90654 ####[facility],[address] [place] [address] 78138 CMP with eGFR Normal [facility] Comment on above: Result Comment: COMP REHENSIVE METABOLIC PANEL Performed By: #### 2 95162 ####[facility],[address] [place] [address] 68027 CO2 [Moles/Vol] 28.7 mmol/L Normal 21.0 - 32.0 [facility] Comment on above: Performed By: #### 2 18864 ####[facility],[address] [place] [address] 58509 Creatinine [Mass/Vol] 0.66 mg/dL Low 0.70 - 1.30 [facility] Comment on above: Performed By: #### 2 38758 ####[facility],[address] [place] [address] 66891 GFR/1.73 sq M.predicted among non-blacks MDRD (S/P/Bld) [Vol rate/Area] mL/min/{1.73_m2} Normal 60 - 999 [facility] Comment on above: Performed By: #### 2 97063 ####[facility],[address] [place] [address] 89376 Result Comment: ACCO RDING TO THE NATIONAL KIDNEY DISEASE EDUCATION PROGRAM(NKDE), A NORMAL eGFR IS A VALUE GREATER THAN OR EQUAL TO 60 ML/MIN/1.73 SQ METERS. CHRONIC KIDNEY DISEASE: <60mL/MIN/1.73 SQ METERS KIDNEY FAILURE: <15mL/MIN/1.73 SQ METERS THIS TEST SHOULD ONLY BE USED FOR PATIENTS 18 YEARS OF AGE AND OLDER. Globulin (S) [Mass/Vol] 4.4 g/dL High 1.5 - 3.8 [facility] Comment on above: Performed By: #### 2 10009 ####[facility],[address] [place] [address] 83891 Glucose [Mass/Vol] 96 mg/dL Normal 74 - 106 [facility] Comment on above: Performed By: #### 2 10927 ####[facility],[address] [place] [address] 53866 Potassium [Moles/Vol] 3.8 mmol/L Normal 3.5 - 5.1 [facility] Comment on above: Performed By: #### 2 57471 ####[address] [address] Protein [Mass/Vol] 7.6 g/dL Normal 6.4 - 8.2 [facility] Comment on above: Performed By: #### 2 81067 ####[facility],[address] [place] [address] 96579 Sodium [Moles/Vol] 137 mmol/L Normal 136 - 145 [facility] Comment on above: Performed By: #### 2 83931 ####[facility],[address] [place] [address] 91337 Urea nitrogen [Mass/Vol] 8 mg/dL Normal 7 - 18 [facility] Comment on above: Performed By: #### 2 78504 ####[facility],[address] [place] [address] 87845 CULTURE BLOOD [KUNAL]on Microscopic examination of blood, culture CULTURE BLOOD [KUNAL] _BLOOD CULTURE_ GO TO [employer] REPORTS AND ATTACHMENTS FOR SCANNED REPORT 10/28/24.1047.DNP.CO MPLETE Normal [facility] Comment on above: Performed By: #### 2 26988 ####[address],[place] [address] CV VENOUS LEG RTon CV VENOUS LEG RT [place] [address] Patient: CIARA SUH Phone#: : 1980 Age: 43 Gender: M Pt. Type: ER Account: [id number] Location: 052 Ordering: CHARLES BROOKS Exam Date: 10/21/2024/12:50 Family Phys: Charge Code: [id number] Physician: Harney Order #: [id number] Dose#: PROCEDURE: VENOUS DOPPLER RT LEG COMPARISON: None. INDICATIONS: Swelling TECHNIQUE: Color duplex Doppler ultrasound evaluation analysis was performed in the usual manner. REFRIGERATION PERSON: PATRIA SANDOVAL RVT [facility] RISK FACTORS FOR VENOUS DISEASE: Other Swelling EXAMINATION: RIGHT +Present -Reduced o Absent LEFT SPONT PHASIC AUG REFLUX COMP SPONT PHASIC AUG REFLUX COM + + + o + CFV + + + o + + SFJ + + + o + FV (prox) + FV (mid) + FV (dist) + + + o + POP V + + + o + T/P TRUNK + + + o + PTV + + + o + PERONEAL V + GSV GASTROC SOLEAL V REFRIGERATION PERSON'S NOTES: FINDINGS: THROMBI: None visible. Continued Report - Page 2 of 2 Patient: CIARA SUH Phone#: : 1980 Age: 43 Gender: M Pt. Type: ER Account: [id number] Location: 052 Ordering: CHARLES TODD Exam Date: 10/21/2024/12:50 Family Phys: Charge Code: [id number] Physician: Harney Order #: [id number] Dose#: COMPRESSIBILITY: Normal. OTHER: Negative. CONCLUSION: 1. No evidence of deep venous thrombosis in the right lower extremity Dictated by: Toshia Nails MD on 10/21/2024 at 13:09 Approved by: Toshia aNils MD on 10/21/2024 at 13:10 Normal [facility] D-DIMER, QUANTITATIVEon 07- D-DIMER QUANT 493 ng/ml High 0 - 230 [facility] Comment on above: Performed By: #### 2 35343 #### [facility],[address] [place] [address] 38974 D-DIMER, QUANTITATIVE Normal [facility] Comment on above: Result Comment: GABY T D-DIMER Performed By: #### 2 81510 #### [facility],[address] [place] [address] 40297 ED MED ADMINISTRATION DETAIL on 10-21-2024 ED MED ADMINISTRATION DETAIL Billet Checker [place]ication [place] [address] [id number] 10/21/2024 Patient: CIARA SUH Sex: Male : 1980 Age: 43y MEASUREMENTS: Wt: 99.8 kg, Ht/Zafar: 71.0 in, BMI: 30.68 ALLERGIES: No known drug allergies Medication Ordered Medication Administration Date/Time CefTRIAXone 14:45 10/21 CefTRIAXone (Rocephin) IVPB 2gm/50ml NS 2 g Started (Rocephin) IVPB started at 100 mL/hr diluted in sodium chloride IVPB 0.9 % 14:45 10/21/2024 2gm/50ml NS 2 g Minibag+ 50 mL via Site# 1. - 14:45 Ivanna Chapin R.N. Ivanna Chapin, diluted in sodium R.N. chloride IVPB 0.9 % 15:00 10/21 Medication Discontinued: IV completed. Total amount Stopped Minibag+ 50 mL at infused: 50 mL. IV patency established. IV site checked: no pain, 15:00 10/21/2024 100 mL/hr (NOW x1) redness, or swelling. IV flushed thoroughly post-medication Ivanna Chapin, administration. - 20:59 Ivanna Chapin R.N. R.N. Scanned 1 of 1 Normal [facility] ED NURSES CLINICAL NOTEon ED NURSES CLINICAL NOTE Nurse Narrative Nurse Clinical Narrative [place] [phone] [id number] 10/21/2024 11:06:00 [id number] Sex[facility] Male : 1980 Age: 43y Disposition: Discharge to Home Disposition Decision Time: 14:37 10/21/2024 Departure Time: 15:15 10/21/2024 TRIAGE Arrived by private vehicle. Historian: (patient). Accompanied by family. Patient has a primary care physician. Primary physician (none). Triage time: 11:16 10/21/2024. Acuity: LEVEL 3. Chief Complaint: RIGHT LOWER EXTREMITY PAIN, SWELLING and REDNESS. ( pt states that approx 2 days ago his right lower thigh began swelling and getting hot and red. he states that the since then, the swelling and pain has progressively started down his leg.). The patient has had swelling and redness. SEPSIS SCREEN: NEGATIVE. SIRS criteria negative. No possible sources of infection. -- 11:10/21/24 EDGil Osullivan R.N. 11:10/21/24. BP: 116/82 MAP: 93. HR: 80. RR: 18. O2 saturation: 95% Temperature: 97.7 F. Pain level now 4/10. -- 11:10/21/24 EDT Paulo Osullivan R.N. Measurements: 11:10/21/24 Wt: 99.8 kg, Ht/Zafar: 71.0 in, BMI: 30.68 -- 11:10/21/24 RITU Osullivan R.N. Medications: no known home medications -- 11:10/21/24 EDT Paulo Osullivan R.N. 1 of 3 Nurse Narrative Allergies: no known drug allergies -- 11:10/21/24 BOBT Paulo Osullivan R.N. Problems: no known problem -- 11:10/21/24 RITU Osullivan R.N. Surgeries: facial trauma surgery -- 11:18 10/21/24 RITU Osullivan R.N. Appendectomy -- 11:10/21/24 RITU Osullivan R.N. Hernia Repair -- 11:10/21/24 EDT Paulo Osullivan R.N. History 11:16 10/21/24. SOCIAL HX: Heavy tobacco smoker- 1 pack per day. Occasional alcohol use. Drug use. (marijuana). The patient has not traveled outside the [place] Infectious disease exposure: No infectious disease exposure. ABUSE ASSESSMENT: Abuse denied. SELF HARM ASSESSMENT: Self harm assessment was performed. The patient answered no to the question(s) Do you have thoughts of harming or killing yourself? and Do you have a plan for harming or killing yourself?. FALL RISK ASSESSMENT: Fall risk assessment completed. No risk factors identified. -- 11:10/21/24 EDT Paulo Osullivan R.N. Interventions 11:16 10/21/24. Advanced care plan discussed with patient. Patient does not have advanced directive. -- 11:10/21/24 BOBT Paulo Osullivan R.N. PHYSICAL ASSESSMENT 2 of 3 Nurse Narrative 11:41 10/21/24. Ambulatory to room. GENERAL / NEURO / PSYCH: Oriented X 4. Alert. Appears in no acute distress. EXTREMITIES: Erythema on the extremities. Limited ROM present. Increased warmth on the extremities. Lower extremity edema. Extremity pulses are within normal limits. Neuro-vascular status intact to the extremity. Right thigh: tenderness, swelling and erythema. SKIN: Skin is warm and dry. Skin rash on the right leg. -- 11:41 10/21/24 BOBT Ivanna Chapin R.N. NURSING PROGRESS NOTES 11:45 10/21/24. Site #1 started in the right antecubital space with a 20g angiocath with aseptic technique and good blood return; 1 attempt. Blood drawn: rainbow set and trent tube(s) and cultures x 1. Saline lock flushed with 10 mL saline. -- 11:57 10/21/24 RITU Chapin R.N. 11:56 10/21/24. Side rails up x 1. Bed placed in lowest position. Brakes of bed on. -- 11:56 10/21/24 RITU Chapin R.N. 14:45 10/21/24. CefTRIAXone (Rocephin) IVPB 2gm/50ml NS 2 g started at 100 mL/hr diluted in sodium chloride IVPB 0.9 % Minibag+ 50 mL via Site# 1. -- 14:45 10/21/24 EDT Ivanna Chapin R.N. 14:51 10/21/24. ( pt antibiotics infusing, will discharge when complete.). -- 14:51 10/21/24 EDT Ivanna Chapin R.N. DISPOSITION / DISCHARGE 15:00 10/21/24. CefTRIAXone (Rocephin) IVPB 2gm/50ml NS: Medication Discontinued. IV completed. Total amount infused: 50 mL. IV patency established. IV site checked: no pain, redness, or swelling. IV flushed thoroughly post-medication administration. -- 20:59 10/21/24 EDT Ivanna Chapin R.N. Departure time: 15:15 10/21/2024. Condition at departure: improved. No learning barriers present. Discharge instructions provided and reviewed with the patient. Reviewed medication(s). Patient verbalized understanding. Written instructions provided in Syrian. The patient was discharged by the physician. The patient was discharged home and accompanied by spouse. The patient left ambulatory and via private vehicle. Spouse driving. -- 15:17 10/21/24 EDGil Chapin R.N. 15:15 10/21/24. BP: 126/71 MAP: 89. HR: 82. RR: 16. O2 saturation: 98% Pain level now 2/10. -- 15:16 10/21/24 RITU Chapin R.N. 15:15 10/21/24. Site #1 removed upon discharge. Catheter intact. Pressure dressing applied. -- 21: (more content not included)... Normal [facility] ED ORDER SHEET (CPOE ONLY)on 10-21-2024 ED ORDER SHEET (CPOE ONLY) Order Sheet Order Sheet [address] [place] [address] [id number] 10/21/2024 Patient: CIARA SUH Sex: Male : 1980 Age: 43y MEASUREMENTS: Wt: 99.8 kg, Ht/Zafar: 71.0 in, BMI: 30.68 ALLERGIES: No known drug allergies MEDICATION/IV/DRIP/F LUID ORDERS Order Description Priority Entered Acknowledged Completed CefTRIAXone (Rocephin) IVPB 14:18 10/21/2024 14:21 14:45 2gm/50ml NS2 g diluted in Charles Brooks M.D. 10/21/2024 10/21/2024 sodium chloride IVPB 0.9 % Ivanna Goncalves Minibag+ 50 mL at 100 mL/hr Jr Chapin R.N. (NOW x1) LAB ORDERS Order Description Priority Entered Acknowledged Collected Completed CBC w Diff Stat Stat 11:40 10/21/2024 11:41 10/21/2024 11:55 10/21/2024 Emily Ernandez R.N. [place], R.N. CMP Stat Stat 11:40 10/21/2024 11:41 10/21/2024 11:55 10/21/2024 Emily Ernandez R.N. [place], R.N. Blood Culture Stat 11:40 10/21/2024 11:41 10/21/2024 11:55 10/21/2024 [Kunal] # 1 Stat Emily Ernandez R.N. [place], R.N. 1 of 2 Order Sheet Lactate, Serum Stat Stat 11:40 10/21/2024 11:41 10/21/2024 11:55 10/21/2024 Emily Ernandez R.N. [place], R.N. D-Dimer Stat Stat 11:40 10/21/2024 11:41 10/21/2024 11:55 10/21/2024 Emily Ernandez R.N. [place], R.N. CRP Stat Stat 11:40 10/21/2024 11:41 10/21/2024 11:55 10/21/2024 Emily Ernandez R.N. [place], R.N. DIAGNOSTIC STUDY ORDERS Order Description Priority Entered Acknowledged Completed CV Venous RT Leg Stat Stat 11:40 10/21/2024 11:41 13:36 Charles Brooks M.D. 10/21/2024 10/21/2024 Jr Gregory R.N. Reason for Study: swelling,limb STAFF ORDERS Order Description Priority Entered Acknowledged Collected Completed IV Saline Lock 11:40 10/21/2024 11:41 10/21/2024 11:55 10/21/2024 Emily Ernandez R.N. [place], R.N. [Electronically signed by Charles Brooks M.D. (10/21/2024 20:09 EDT)] 2 of 2 Normal [facility] ED PHYSICIAN CLINICAL REPORT on 10-21-2024 ED PHYSICIAN CLINICAL REPORT Narrative Physician Clinical Narrative [address] [address] [phone] 10/21/2024 11:06:00 Patient: CIARA SUH Sex: Male : 1980 Age: 43y Disposition: Discharge to Home Disposition Decision Time: 14:37 10/21/2024 Departure Time: 15:15 10/21/2024 Measurements Wt: 99.8 kg, Ht/Zafar: 71.0 in, BMI: 30.68 Initial Vital Sign Measured Time BP MAP HR RR O2Sat ETCO2 Temp Pain GCS RTS 11:20 10/21/2024 116/82 93 80 18 95% 97.7 F 4 Time Seen: late entry - 12:08 10/21/2024. Arrived- By private vehicle. Historian- patient. HISTORY OF PRESENT ILLNESS Chief Complaint: LOWER EXTREMITY PAIN and SWELLING. Severity is described as being moderate. This started about 2 days ago and is still present and worsening. (Patient states sometime ago he thinks he bumped his right thigh and had a slight bruise but that seemed to heal up without any problems. A couple of days ago he noticed notice some soreness to his right thigh. Over the last couple of days has got gradually worse yesterday and particularly today he has noticed some redness warmth and tenderness over the dorsal medial aspect of the thigh with more swelling developing to the thigh and lower leg. He is able to be up and ambulatory but complains of little more discomfort when he is on it. Has not had any fever chills nausea or vomiting.). The patient has had redness and swelling. No difficulty walking. No sensory loss or motor loss. Patient denies an injury and notes the possibility of an injury. Mechanism of injury- (bumped leg several days ago.). Similar symptoms previously. None. 1 of 11 Narrative REVIEW OF SYSTEMS RESPIRATORY: No cough. CVS: No chest pain. SKIN: The patient has had skin rash (Has an intermittent dry patchy rash to the right anterior knee but son 10s to come and go. Also a small patch to his lower back.). NEUROLOGICAL: No headache. EYES: No blurred vision. THROAT: No sore throat. GI: No abdominal pain or vomiting. CONSTITUTIONAL: No fever. PAST HISTORY See nurses notes. no known problem Surgeries: Appendectomy facial trauma surgery Hernia Repair Medications: no known home medications Allergies: no known drug allergies SOCIAL HISTORY History of tobacco use. Alcohol use. ADDITIONAL NOTES The nursing notes have been reviewed. PHYSICAL EXAM Vital Signs: Have been reviewed. Appearance: Alert. Oriented X3. No acute distress. Eyes: Pupils equal, round and reactive to light. ENT: Nose normal. Pharynx normal. 2 of 11 Narrative Neck: Neck supple. CVS: Normal heart rate and rhythm. Respiratory: No respiratory distress. Painless inspiration. Breath sounds normal. Abdomen: Soft and nontender. Back: Normal inspection. Skin: Normal skin color. Normal skin turgor. Mild skin rash (Patient has a mild dry patchy rash over the right knee the test some minimal scattered redness mainly along the hair follicles. Positive this is unclear there is no tenderness or significant redness or induration.). Extremities: Right thigh: tenderness, swelling and mild erythema. (Patient has some vague mild swelling to the right thigh. There is some early did find pink pinkish splotches that are somewhat warm over the dorsum of the thigh some dorsal medially. No inguinal swelling tenderness or adenopathy.). No laceration, abrasion or ecchymosis. No avulsion. Swelling, warmth, tenderness and erythema present in the right thigh (Some mild redness and warmth over the dorsum of the thigh though no appreciable induration. Can not rule out infection in this area.). Mild 1+ edema of the right lower extremity involving the lower leg and thigh. No calf tenderness. Neuro: Oriented X 3. No motor deficit. No sensory deficit. Reflexes normal. LABS, X-RAYS, AND EKG Laboratory Tests: C-REACTIVE PROTEIN Final SULEIMAN: 10/21/2024 11:45:00 EDT MsgRcvd: 10/21/2024 12:43 EDT Lab Test Result Reference Status Received Comments 1.29 mg/dl 10/21/2024 12:43 CRP 0.00 - 0.90 Final Above high normal EDT CBC + DIFF Final SULEIMAN: 10/21/2024 11:45:00 EDT MsgRcvd: 10/21/2024 12:37 EDT Lab Test Result Reference Status Received Comments 10/21/2024 12:37 CBC-COMPLETE CBC + DIFF Final EDT BLOOD COUNT 3 of 11 Narrative Lab Test Result Reference Status Received Comments 10/21/2024 12:37 WBC 10.4 x 10/UL 4.5 - 10.8 Final EDT 10/21/2024 12:37 RBC 5.05 x 10/UL 4.50 - 6.00 Final EDT 10/21/2024 12:37 HEMOGLOBIN 16.0 g/dl 13.0 - 17.5 Final EDT 10/21/2024 12:37 HEMATOCRIT 45.7 % 40.0 - 52.0 Final EDT 10/21/2024 12:37 MCV 90 fl 81 - 98 Final EDT 10/21/2024 12:37 MCH 32 pg 27 - 33 Final EDT 10/21/2024 12:37 MCHC 35 X10 3 32 - 36 Final EDT 10/21/2024 12:37 RDW/CV 13.7 % 12.0 - 15.6 Final EDT 10/21/2024 12:3 (more content not included)... Normal [facility] ED [facility] BILL 10-21-2024 ED [facility] [address] [place] [address] [phone] 10/21/2024 Patient: CIARA SUH Sex: Male : 1980 Age: 43y Item Facility Professional Category Description Code Code Quantity Fee Total Nurse/E/M EMERGENCY 192860 1 $0.00 $0.00 DEPARTMENT VISIT HIGH/URGENT SEVERITY (77049-06) Nurse/IV/IM/Infusion s IVP initial 993680 1 $0.00 $0.00 (68821) Grand Total $0.00 Providers Charles Brooks M.D. Chief Complaint LOWER EXTREMITY PAIN and SWELLING. Principal Diagnosis Cellulitis of the right thigh. 1 of 2 Superbill ICD-10 Codes L03.115: Cellulitis of right lower limb 2 of 2 Normal [facility] ED VISIT SUMMARYon ED VISIT SUMMARY Visit Overview Visit Overview [address] [place] [address] [phone] 10/21/2024 Patient: CIARA SUH Sex: Male : 1980 Age: 43y 10/21/2024 09:00 PM EDT ED Arrival:11:06 10/21/2024 EDT Status: Recent Travel:no Language:eng Adv Directive:No Isolation Status: Ethnicity:N Fall Risk:no risk Infectious Disease Exposure:no Measurements:5'11 / 180.3 Self-Harm Status:no risk Sepsis Screen:negative cm 220.0 lb / 99.8 kg Chief Complaint:RIGHT LOWER EXTREMITY PAIN, RIGHT LOWER EXTREMITY REDNESS, RIGHT LOWER EXTREMITY SWELLING, (none), and (pt states that approx 2 days ago his right lower thigh began swelling and getting hot and red. he states that the since then, the swelling and pain has progressively started down his leg. ) ALLERGIES No Known Drug Allergies 1 of 3 Visit Overview HOME MEDICATIONS None PAST MEDICAL HISTORY / PROBLEMS None See nurses notes PAST SURGICAL HISTORY Appendectomy facial trauma surgery Hernia Repair SOCIAL HISTORY Smoking status: Yes Alcohol use: Yes Drug use: Yes ED COURSE MEDICATIONS GIVEN IN EMERGENCY DEPARTMENT CefTRIAXone (Rocephin) IVPB 2gm/50ml NS 2 g diluted in sodium chloride IVPB 0.9 14:45 10/21/24 % Minibag+ 50 mL 100 mL/hr IV SITE INFORMATION INTAKE OUTPUT REASSESMENT (most recent) 14:51 10/21/24. ( pt antibiotics infusing, will discharge when complete.). VITAL SIGNS First Vitals Last Vitals Temp 11:20 10/21/24 97.7 F Temp 15:15 10/21/24 2 of 3 Visit Overview First Vitals Last Vitals BP 11:20 10/21/24 116/82 BP 15:15 10/21/24 126/71 HR 11:20 10/21/24 80 HR 15:15 10/21/24 82 RR 11:20 10/21/24 18 RR 15:15 10/21/24 16 O2 Sat 11:20 10/21/24 95% O2 Sat 15:15 10/21/24 98% Pain 11:20 10/21/24 4 Pain 15:15 10/21/24 2 ETCO2 11:20 10/21/24 ETCO2 15:15 10/21/24 GCS 11:20 10/21/24 GCS 15:15 10/21/24 RTS 11:20 10/21/24 RTS 15:15 10/21/24 PROCEDURES NURSING INTERVENTIONS LABS / STUDIES LABS / STUDIES ORDERED Blood Culture [Kunal] # 1 CBC w Diff CMP CRP CV Venous RT Leg D-Dimer Lactate, Serum CLINICAL IMPRESSION CELLULITIS OF THE RIGHT THIGH 3 of 3 Normal [facility] ED VITALS FLOW SHEETon 10-21 ED VITALS FLOW SHEET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
--- NOTE | 2024-11-30 13:50 | RAD_ITS ---
PROCEDURE: FACIAL BONES MIN 3 VIEWS 11/30/2024 REASON FOR EXAM: SEE IF THERES PREVIOUS SHRAPNEL TO GET MRI TECHNIQUE: Procedure Code: RADFB Modality: DX Procedure: FACIAL BONES MIN 3 VIEWS COMPARISON: Head CT August 30, 2022 FINDINGS: Osseous: No radiographic evidence for acute displaced fracture of the facial bones is seen. Note is made that subtle bony injury would be best identified by CT. Soft tissues: Tiny metallic fragments are noted in the region of the left zygoma, better visualized on prior CT. There is also a 12.5 mm metallic density adjacent to the left mandibular body, better visualized on prior CT. No radiopaque or metallic foreign bodies are seen overlying either orbit. Metallic dental hardware is noted within a left mandibular molar tooth. RAD/Facial Bones min 3 Views IMPRESSION: Metallic foreign bodies are noted as discussed above. No radiopaque/metallic foreign bodies overlying the orbits. - Other findings and recommendations discussed above. Reading Location: [id number]
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
--- NOTE | 2024-11-30 16:39 | CM.ED ---
Social Work Date of referral: 11/30/24 Reason for referral: No Primary Care Physician (PCP) on file. Patient provided consent to social work visit. Patient's stated she and patient have just gone on to the portal for [place] to get patient established with e PCP and believes the name of the doctor patient is getting established with as Dr. Chatterjee but isn't sure. Patient declined any additional needs/resources at this time. Nancy Nieves, MARKETING TRAFFIC MANAGER, FUEL INJECTION SERVICER
--- NOTE | 2024-11-30 19:43 | ED.RN ---
Report called to Loretta Paredes
== END 2024-11-30 21:43 | disposition short-term general hospital (02) ==
PROVIDERS: Emergency Provider Student in an Organized Health Care Education/Training Program; Visit Provider Student in an Organized Health Care Education/Training Program
DX: R20.0 Anesthesia of skin (principal); S22.089A Unspecified fracture of T11-T12 vertebra, initial encounter for closed fracture; S32.019A Unspecified fracture of first lumbar vertebra, initial encounter for closed fracture; S32.029A Unspecified fracture of second lumbar vertebra, initial encounter for closed fracture; S32.039A Unspecified fracture of third lumbar vertebra, initial encounter for closed fracture; R29.898 Other symptoms and signs involving the musculoskeletal system; M54.9 Dorsalgia, unspecified; V89.2XXA Person injured in unspecified motor-vehicle accident, traffic, initial encounter; Z87.828 Personal history of other (healed) physical injury and trauma; F17.210 Nicotine dependence, cigarettes, uncomplicated
CPT/HCPCS: 70150; 96374; 96376; 99283; A4216